=== PATIENT | female | born 1960 | race Caucasian/White ===

== ENCOUNTER 2019-10-29 12:28 | Day surgery (SDC) | payer BC, OTHER ==
[~2019-10-29] VITALS: Ht 160 cm; Wt 80.0 kg
[~2019-10-29 12:28] MED LIST: BUSP10TA PO
[2019-10-29] MEDS ORDERED: LACTATED RINGERS 1,000 ML IV SCH (12:58)
[2019-10-29] MEDS ORDERED: CHLORHEXIDINE 15 ML UDC MM ONE (13:00)
[2019-10-29 13:03] VITALS: BP 137/88
[2019-10-29] MEDS ORDERED: CHLORHEXIDINE 15 ML UDC ONE (13:08)
[2019-10-29] MEDS ORDERED: FENTANYL PF 100 MCG/2ML ONE (13:09)
[2019-10-29] MEDS ORDERED: ROCURONIUM 10MG/ML,5ML ONE (13:09)
[2019-10-29] MEDS ORDERED: LIDOCAINE-MPF 2% ,5ML ONE (13:09)
[2019-10-29] MEDS ORDERED: PROPOFOL 10 MG/ML, 20ML ONE (13:09)
[2019-10-29] MEDS ORDERED: GLYCOPYRROLATE 0.2MG/1ML, 5ML ONE (13:09)
[2019-10-29] MEDS ORDERED: DEXAMETHASONE 4 MG/ML, 1ML ONE (13:09)
[2019-10-29] MEDS ORDERED: MIDAZOLAM 1 MG/ML, 2ML ONE (13:09)
[2019-10-29] MEDS ORDERED: LIDOCAINE-MPF 1%, 2ML ONE (13:25)
[2019-10-29] MEDS ORDERED: ALBUTEROL/IPRATROPIUM 2.5MG/0.5MG, 3 ML NPPB PRN (13:30)
[2019-10-29] MEDS ORDERED: FENTANYL PF 100 MCG/2ML IV PRN (13:30)
[2019-10-29] MEDS ORDERED: MEPERIDINE/PF 25MG/0.5ML IVPush PRN (13:30)
[2019-10-29] MEDS ORDERED: HYDROcodone/APAP 7.5-325MG/15ML UDC PO PRN (13:30)
[2019-10-29] MEDS ORDERED: METOCLOPRAMIDE 5 MG/ML, 2ML IVPush PRN (13:30)
[2019-10-29] MEDS ORDERED: ONDANSETRON 2MG/ML, 2ML IVPush PRN (13:30)
[2019-10-29] MEDS ORDERED: OXYcodone 5 MG/5 ML ORAL.SOL UDC PO PRN (13:30)
[2019-10-29] MEDS ORDERED: EPHEDRINE 50 MG/ML, 1ML IVPush PRN (13:30)
[2019-10-29] MEDS ORDERED: LIDOCAINE-MPF 1%, 2ML INFIL ONE (13:30)
[2019-10-29] MEDS ORDERED: HALOPERIDOL 5 MG/ML IV PRN (13:30)
[2019-10-29] MEDS ORDERED: EPHEDRINE 50 MG/ML, 1ML IM PRN (13:30)
[2019-10-29] MEDS ORDERED: HYDROmorphone 1 MG/ML, 1ML INJ IVPush PRN (13:30)
[2019-10-29] MEDS ORDERED: LORazepam 2 MG/ML, 1ML IVPush PRN (13:30)
[2019-10-29] MEDS ORDERED: MIDAZOLAM 1 MG/ML, 2ML IV PRN (13:30)
[2019-10-29] MEDS ORDERED: hydrALAzine 20 MG/ML, 1ML IV PRN (13:30)
[2019-10-29] MEDS ORDERED: KETOROLAC 30 MG/1 ML IVPush PRN (13:30)
[2019-10-29] MEDS ORDERED: DIPHENHYDRAMINE 50 MG/ML, 1ML IVPush PRN (13:30)
[2019-10-29] MEDS ORDERED: METHOCARBAMOL 1,000 MG in DEXTROSE 5% 100 ML IV PRN (13:30)
[2019-10-29] MEDS ORDERED: LABETALOL 5MG/ML, 20ML IV PRN (13:30)
[2019-10-29] MEDS ORDERED: DIAZEPAM 5 MG/ML, 2ML IVPush PRN (13:30)
[2019-10-29] MEDS ORDERED: ACETAMINOPHEN 325 MG TABLET PO PRN (13:30)
[2019-10-29] MEDS ORDERED: BUPIVACAINE/PF-EPI 0.5% 1:200K ONE (13:34)
[2019-10-29] MEDS ORDERED: KETOROLAC 30 MG/1 ML ONE (14:40)
[2019-10-29] MEDS ORDERED: CEFAZOLIN 1,000 MG ONE (14:40)
[2019-10-29] MEDS ORDERED: LABETALOL 5MG/ML, 20ML ONE (14:40)
[2019-10-29] MEDS ORDERED: MAGNESIUM SULFATE 8 MEQ/2 ML, 2ML ONE (14:40)
[2019-10-29] MEDS ORDERED: OXYcodone 5 MG/5 ML ORAL.SOL UDC ONE (15:50)
== END 2019-10-29 17:50 | disposition home or self-care (01) ==
LOC: OUT 12:28
PROVIDERS: ATTEND Surgery
DX: K80.10 Calculus of gallbladder with chronic cholecystitis without obstruction (principal); Z11.59 Encounter for screening for other viral diseases; K82.8 Other specified diseases of gallbladder; F41.9 Anxiety disorder, unspecified; F32.9 Major depressive disorder, single episode, unspecified; Z79.899 Other long term (current) drug therapy
CPT/HCPCS: 36415; 47562; 87635; 88304; J0690; J1100; J1885; J2250; J2704; J3010; J3475; J7120